=== PATIENT | female | born 1990 | race Caucasian/White ===

== ENCOUNTER 2020-12-21 11:49 | Inpatient (IN) | payer OTHER ==
[~2020-12-21] VITALS: Ht 175.3 cm; Wt 108.0 kg
[~2020-12-21 11:49] MED LIST: Evening Primro500 MG PO; HYDACE5 PO; IBUP800 PO; PRENATAL DHA200 MG PO; Roxicodone15 MG PO; VALA500 PO
[2020-12-21 12:39] LABS: Hematocrit 37.8 % (33.0-51.0); Hemoglobin 12.5 g/dL (11.5-16.0); Mean Corpuscular HGB 30.4 pg (26.0-34.0); Mean Corpuscular HGB Conc 33.1 g/dL (31.5-36.5); Mean Corpuscular Volume 92 fL (80-100); Mean Platelet Volume 9.1 fL (9.1-12.4); Platelet Count 254 K/mm3 (150-400); RDW Coefficient Variation 13.5 % (11.7-14.2); RDW Standard Deviation 45.1 fL (35.1-46.3); Red Blood Cell Count 4.11 M/mm3 (3.80-5.20); White Blood Cell Count 7.93 K/mm3 (4.00-11.30)
[2020-12-22] MEDS ORDERED: ACYC400 PO (07:30)
[2020-12-23 08:43] LABS: PCO2 Cord - Arterial 58.3 mmHg (40-50); pH Cord - Arterial 7.27 (7.28-7.35)
--- NOTE | 2020-12-23 08:43 | NUR ---
12/23/20 0843 Victoria Allen DELIVERY OF VIABLE FEMALE INFANT AT 0820, APGARS 9/9. PLACENTA DELIVERED COMPLETE, MANUALLY. WEIGHT 3245 GMS. BILATERAL SALPINGECTOMY PERFORMED COMPLETE
[2020-12-23 08:45] LABS: PCO2 Cord - Venous 50.2 mmHg (40-50); PO2 Cord - Venous 20.4 mmHg (28-32); pH Umbilical Cord - Venous 7.32 (7.26-7.35)
[2020-12-24 05:37] LABS: BASOPHILS ABSOLUTE AUTO 0.02 K/mm3 (0.00-0.23); BASOPHILS PERCENT AUTO 0 % (0-2); EOSINOPHILS ABSOLUTE AUTO 0.15 K/mm3 (0.00-0.68); EOSINOPHILS PERCENT AUTO 1 % (0-6); Hematocrit 32.7 % (33.0-51.0); Hemoglobin 10.8 g/dL (11.5-16.0); IMMATURE GRAN ABSOLUTE AUTO 0.06 K/mm3 (0.00-0.10); IMMATURE GRAN PERCENT AUTO 1 % (0-1); LYMPHOCYTES PERCENT AUTO 12 % (21-46); MONOCYTES ABSOLUTE AUTO 1.12 K/mm3 (0.16-1.47); MONOCYTES PERCENT AUTO 10 % (4-13); Mean Corpuscular HGB 30.4 pg (26.0-34.0); Mean Corpuscular Volume 92 fL (80-100); Mean Platelet Volume 9.1 fL (9.1-12.4); NEUTROPHILS ABSOLUTE AUTO 8.61 K/mm3 (1.96-9.15); NEUTROPHILS PERCENT AUTO 76 % (41-73); Platelet Count 210 K/mm3 (150-400); RDW Coefficient Variation 13.3 % (11.7-14.2); RDW Standard Deviation 45.1 fL (35.1-46.3); Red Blood Cell Count 3.55 M/mm3 (3.80-5.20); White Blood Cell Count 11.36 K/mm3 (4.00-11.30)
[2020-12-24] MEDS ORDERED: Percocet 5-3251 EACH PO (16:25)
[2020-12-24] MEDS ORDERED: IBUP800 PO (16:25)
[2020-12-24] MEDS ORDERED: DOCU100 (17:37)
== END 2020-12-24 18:35 | disposition home or self-care (01) | DRG 784 ==
LOC: BC 12-23 05:36 → PRE IP 12-23 07:30 → BC 12-23 19:41
PROVIDERS: ADMIT Obstetrics & Gynecology
PROC: 10D00Z1 Extraction of Products of Conception, Low, Open Approach (ICD-10-PCS; principal; 2020-12-23 07:30)
PROC: 0UT70ZZ Resection of Bilateral Fallopian Tubes, Open Approach (ICD-10-PCS; 2020-12-23 07:30)
DX: O34.211 Maternal care for low transverse scar from previous cesarean delivery (principal); O99.324 Drug use complicating childbirth; O98.32 Other infections with a predominantly sexual mode of transmission complicating childbirth; N85.8 Other specified noninflammatory disorders of uterus; Z3A.39 39 weeks gestation of pregnancy; Z37.0 Single live birth; Z30.2 Encounter for sterilization; F15.11 Other stimulant abuse, in remission; Z20.822 Contact with and (suspected) exposure to COVID-19; O99.02 Anemia complicating childbirth; D64.9 Anemia, unspecified; A60.00 Herpesviral infection of urogenital system, unspecified; Z79.899 Other long term (current) drug therapy; Z86.19 Personal history of other infectious and parasitic diseases; Z86.16 Personal history of COVID-19; Z87.891 Personal history of nicotine dependence
CPT/HCPCS: 36415; 82803; 85025; 85027; 86850; 86900; 86901; 88302; A9270; J0690; J1885; J2370; J2405; J2590; J2765; J3010; J7120; U0004

== ENCOUNTER → 2021-07-15 | Outpatient (CLI) | payer OTHER ==
[~2021-07-15] MED LIST changes: +ACYC400 PO; +DOCU100; +Percocet 5-3251 EACH PO
[2021-07-15 19:34] LABS: BASOPHILS ABSOLUTE AUTO 0.02 K/mm3 (0.00-0.23); BASOPHILS PERCENT AUTO 0 % (0-2); EOSINOPHILS ABSOLUTE AUTO 0.13 K/mm3 (0.00-0.68); EOSINOPHILS PERCENT AUTO 2 % (0-6); Hematocrit 42.9 % (33.0-51.0); Hemoglobin 14.4 g/dL (11.5-16.0); IMMATURE GRAN ABSOLUTE AUTO 0.02 K/mm3 (0.00-0.10); IMMATURE GRAN PERCENT AUTO 0 % (0-1); LYMPHOCYTES ABSOLUTE AUTO 2.31 K/mm3 (0.84-5.20); LYMPHOCYTES PERCENT AUTO 29 % (21-46); MONOCYTES ABSOLUTE AUTO 0.72 K/mm3 (0.16-1.47); MONOCYTES PERCENT AUTO 9 % (4-13); Mean Corpuscular HGB 30.2 pg (26.0-34.0); Mean Corpuscular HGB Conc 33.6 g/dL (31.5-36.5); Mean Corpuscular Volume 90 fL (80-100); Mean Platelet Volume 9.1 fL (9.1-12.4); NEUTROPHILS ABSOLUTE AUTO 4.68 K/mm3 (1.96-9.15); NEUTROPHILS PERCENT AUTO 59 % (41-73); Platelet Count 318 K/mm3 (150-400); RDW Standard Deviation 39.8 fL (35.1-46.3); Red Blood Cell Count 4.77 M/mm3 (3.80-5.20); White Blood Cell Count 7.88 K/mm3 (4.00-11.30)
[2021-07-15 20:16] LABS: Alanine Aminotransfer (ALT/SGP 41 U/L (12-78); Albumin, Blood 3.9 g/dL (3.4-5.0); Albumin/Globulin Ratio 1.3 (0.8-1.8); Alk Phos 85 U/L (50-136); Anion Gap 8 mmol/L (6-16); Aspartate Aminotrans (AST/SGOT 13 U/L (12-37); Bilirubin, Total 0.3 mg/dL (0.1-1.0); Blood Urea Nitrogen 9 mg/dL (8-24); Bun/Creatinine Ratio 16.4 (12.0-20.0); CO2, Blood 27 mmol/L (21-32); Calcium, Blood 8.7 mg/dL (8.5-10.1); Chloride, Blood 107 mmol/L (98-108); Creatinine, Blood 0.55 mg/dL (0.40-1.00); Globulin, Blood 3.1 g/dL (2.2-4.0); Glomerular Filtration Rate >60 (60-); Glucose, Blood 90 mg/dL (70-99); Potassium, Blood 4.1 mmol/L (3.5-5.5); Sodium, Blood 142 mmol/L (136-145)
== END ==
LOC: LAB SHORT 17:29
PROVIDERS: Registered Nurse Community Health
DX: R10.9 Unspecified abdominal pain (principal)
CPT/HCPCS: 80053; 85025; 87086

== ENCOUNTER 2023-07-27 08:16 | Day surgery (SDC) | payer OTHER ==
[~2023-07-27] VITALS: Ht 175.3 cm; Wt 93.0 kg
--- NOTE | 2023-07-27 08:53 | NUR ---
07/27/23 0853 Eugenia Rivera SISTER BRITTANY IN ROOM WITH PT. NO QUESTIONS OR CONCERNS AT THIS TIME
[2023-07-27] MEDS ORDERED: ACET500 (08:56)
[2023-07-27] MEDS ORDERED: NAPR220 PO (08:57)
--- NOTE | 2023-07-27 10:23 | NUR ---
07/27/23 1023 Angle Stover 0ML OF FLUID DEFICIT NOTED AT END OF CASE BY RN AND DR ROY.
[2023-07-27 10:58] VITALS: BP 138/101
--- NOTE | 2023-07-27 11:46 | NUR ---
07/27/23 1146 Thai Dempsey IV REMOVED INTACT. SITE WNL. PT ADVISED TO MONITOR B/P AND FOLLOW UP WITH PCP. PT DENIED CARDIAC AND RESPIRATORY SYMPTOMS--INCLUDING DIZZINESS, CHEST PAIN, AND SHORTNESS OF BREATH--AND NONE WERE OBSERVED . SHE APPEARED CALM, TALKATIVE, AND SMILING UPON D/C AND EXPRESSED READINESS TO RETURN HOME.
== END 2023-07-27 11:45 | disposition home or self-care (01) ==
LOC: ORSCSDS 08:16
PROVIDERS: Obstetrics & Gynecology
PROC: 0U5B8ZZ Destruction of Endometrium, Via Natural or Artificial Opening Endoscopic (ICD-10-PCS; principal; 2023-07-27 09:30)
DX: N92.0 Excessive and frequent menstruation with regular cycle (principal); N94.6 Dysmenorrhea, unspecified; Z87.891 Personal history of nicotine dependence; E66.9 Obesity, unspecified; Z68.30 Body mass index [BMI] 30.0-30.9, adult; Z79.899 Other long term (current) drug therapy
CPT/HCPCS: J0690; J1100; J1885; J2250; J2405; J2704; J3010